=== PATIENT | female | born 1965 | race Caucasian/White ===

== ENCOUNTER → 2016-09-06 | Outpatient (CLI) | payer MEDICAID ==
[~2016-09-06] MED LIST: CEPHALEXIN500 MG PO; CIPRO 500MG TA500 MG PO; ESTRADIOL1 MG PO; GABAPENTIN 100100 MG PO; LORTAB 5/500 501 TAB PO; MEDROL 4MG. DOSE4 MG PO; MELOXICAM15 MG PO; MOTRIN 400MG.400 MG PO; NOMEDS *; PANTOPRAZOLE SO40 MG PO; PERCOCET 5/3251 EACH PO; PHENERGAN25 M3 PO; TRAMADOL 50MG T50 MG PO; ZITHROMAX Z PA250 MG PO; Zofran4 MG PO
--- NOTE | 2016-09-13 09:28 | RADIOLOGY REPORT PS360 ---
DIG MAMM-DX JUANJOSE W/AVWS W/CAD, RIGHT BREAST ULTRASOUND LEFT BREAST ULTRASOUND COMPARISON: 06/15/2015 mammogram and ultrasound, 05/28/2015 mammogram INDICATION: Follow-up probably benign findings ORDERING PHYSICIAN: MARCO MON PATIENT AGE: 51 years TECHNIQUE: Standard images performed with spot compression and mag views along with bilateral breast ultrasound FINDINGS: There is average fibroglandular tissue bilaterally. Right mammogram: Persistent asymmetric density involves the medial aspect of the right breast similar to 05/28/2015. Central calcifications in the right breast were somewhat less apparent. No malignant appearing mass or malignant appearing microcalcification is evident. Right breast ultrasound: There is a 7 x 3 mm cyst at the 3:00 region. There is questionable thickening of the anterior wall of the cyst with some increased echogenicity. This however may all be related overlying fatty tissue. Patient does report some tenderness in this region. There is a complex 6 mm cyst at 10:00. Not significant change. Left mammogram: Asymmetric density once again noted in the mid and superior left breast. No discrete mass or malignant appearing microcalcification noted on the spot compression views. Left breast ultrasound: Unremarkable IMPRESSION: Benign findings, no evidence of malignancy. BI-RADS CATEGORY: 2_Benign RECOMMENDED FOLLOWUP: Screening mammogram August 2017. Would also consider follow-up right breast ultrasound at that time to confirm stability of the complex cyst which have been stable for 6 months. (A letter has been sent to the patient regarding results of the study.) This report was generated using the voice recognition software. Please excuse any financial services associate errors which may have been overlooked. Please contact our radiology department for clarification if needed.
== END ==
LOC: RAD 08-29 13:00
DX: N60.19 Diffuse cystic mastopathy of unspecified breast (principal); N64.4 Mastodynia
CPT/HCPCS: G0204

== ENCOUNTER → 2017-02-05 | Outpatient (CLI) | payer MEDICAID ==
[~2017-02-05] MED LIST changes: +LISINOPRIL/HCTZ1 TA3 PO
--- NOTE | 2017-02-08 21:07 | RADIOLOGY REPORT PS360 ---
CT CHEST W/O CONTRAST HISTORY: LUNG NODULE Patient Age: 52 years: Female Ordering Physician: MANDO MUNOZ MD TECHNIQUE: Helical CT scanning performed through the chest Sagittal & coronal reconstruction CT workstation COMPARISON :CT chest 01/07/2016 & 09/09/1959 FINDINGS Fibrotic changes of both right and left apex RIGHT LUNG:: The irregular stellate stable Nodular density towards right apex appears unchanged in size measuring just 10.4 mm AP. No appreciable change./Axial image 21 Small calcified granuloma 4 mm size axial image 25 New 3.3 mm nonspecific nodule extending just above the minor fissure On sagittal image 27.axial image 32 Likely a small fissural nodule. Can be followed . LEFT LUNG Stable fibrotic changes left apex with some scattered blebs no significant nodules left lung Mild bronchiectatic changes bilaterally most evident towards the upper lobe apices, left greater than right. No pleural lesions or effusion. No chest wall lesions. Mediastinum: No significant mediastinal adenopathy or mass only scattered small nodes. Aorta normal caliber. Heart normal size. Upper abdomen. No significant findings Stable calcification lateral aspect superior left kidney likely from old scarring Follow-up CT chest 9 -12 months I believe would be adequate IMPRESSION: . 1.. Emphysematous changes With fibrotic features and mild bronchiectatic changes towards upper lobes . Bilateral apical pleural parenchymal scarring. 2. The irregular 11 mm nodule right apex again identified & appear stable -most likely reflecting the apical chronic scarring process.. However Warrants ongoing follow-up given its irregular appearance. 3. A tiny new small 3.3 mm nodule, just above the minor fissure on right likely small benign fissure nodule-but is a new feature since prior studies 2016.
== END ==
LOC: RAD 07:34 → RT 10:00
DX: R05 Cough (principal); R06.02 Shortness of breath; J42 Unspecified chronic bronchitis; R91.1 Solitary pulmonary nodule

== ENCOUNTER → 2017-03-21 | Outpatient (CLI) | payer MEDICAID ==
[2017-03-21 11:10] VITALS: BP 118/81; BP 124/83
== END ==
LOC: RAD 09:30 → RT 09:37
DX: R05 Cough (principal); R06.02 Shortness of breath; J42 Unspecified chronic bronchitis

== ENCOUNTER → 2017-05-28 | Outpatient (CLI) | payer MEDICAID ==
[2017-05-28 10:47] LABS: HEMOGLOBIN 15.6 g/dL (12.2-16.2); LYMPH # 2.7 K/mm3 (0.7-4.5); LYMPH % 29.5 % (10-50.0)
[2017-05-28 13:19] LABS: BUN 7 mg/dL (7-18)
[2017-05-28 14:07] LABS: GFR (ESTIMATED) 105 ML/MIN (59-)
[2017-05-29 08:50] LABS: Iron 66 ug/dL (27-159); Iron Saturation 25 % (15-55); UIBC 194 ug/dL (131-425)
== END ==
LOC: LAB 10:27
PROVIDERS: Nurse Practitioner Family
DX: R53.83 Other fatigue (principal)